=== PATIENT | male | born 1970 | race Caucasian/White ===

== ENCOUNTER 2019-12-02 09:38 | Day surgery (SDC) | payer OTHER ==
[2019-12-02] VITALS (8 sets, daily range): BP systolic 114–138; BP diastolic 65–84; PULSE 69–79; TEMP 97.1–98.5
[~2019-12-02] VITALS: Ht 180.3 cm; Wt 107.6 kg
[2019-12-02] MEDS ORDERED: BENICAR5 MG PO (10:57)
[2019-12-02] MEDS ORDERED: NAPROSYN500 MG PO (10:57)
[2019-12-02] MEDS ORDERED: LUNESTA3 MG PO (10:58)
[2019-12-02] MEDS ORDERED: DOCOSAHEXAENOIC ACID PO (10:59)
[2019-12-02] MEDS ORDERED: [UNRECOGNIZED DRUG - OTHER] PO (11:00)
[2019-12-02] MEDS ORDERED: MULTIVITAMIN PO (11:01)
[2019-12-02] MEDS ORDERED: NORCO 325 MG-51 TAB PO (14:07)
--- NOTE | 2019-12-02 14:35 | NUR ---
Patient returns to room per cart from PACU and is awake and alert. Temp 97.3 and room air sats 96%. Bandaids x3 on abdomen is clean and dry. IV fluids infusing and site is free of redness. Siderails up x2 and call light in reach. Taking sips of water and allowed to rest.
--- NOTE | 2019-12-02 14:50 | NUR ---
Resting and talking on phone. Offers no complaints.
--- NOTE | 2019-12-02 15:05 | NUR ---
Eating muffin and drinking Pepsi. States that he is beginning to have some incisional soreness.
--- NOTE | 2019-12-02 15:10 | NUR ---
Medicated with [place] 5mg for incisional pain.
--- NOTE | 2019-12-02 15:20 | NUR ---
Room air sats 95%. Sipping on Pepsi and water.
--- NOTE | 2019-12-02 15:35 | NUR ---
Eating toast and drinking water. No further complaints of pain or nausea.
--- NOTE | 2019-12-02 16:05 | NUR ---
Resting talking on phone.
--- NOTE | 2019-12-02 16:30 | NUR ---
Assisted up to the bathroom and voids. Gait steady and returns to room. IV discontinued and assisted patient with dressing.
--- NOTE | 2019-12-02 16:44 | NUR ---
Dismissal instructions given and voices understanding of home cares and follow up as scheduled. Provided script for [place] and informed that he may take Motrin 600mg po every 6 hours as needed for pain.
--- NOTE | 2019-12-02 16:49 | NUR ---
Patient dismissed to home driven by spouse and taken to the front door per wheelchair and asssisted into vehicle by this RN with instructions in hand.
== END 2019-12-02 16:49 | disposition home or self-care (01) ==
LOC: SDCO 09:38
DX: K40.20 Bilateral inguinal hernia, without obstruction or gangrene, not specified as recurrent (principal); D17.6 Benign lipomatous neoplasm of spermatic cord; I10 Essential (primary) hypertension; M16.12 Unilateral primary osteoarthritis, left hip; Z96.642 Presence of left artificial hip joint; Z79.899 Other long term (current) drug therapy; Z91.041 Radiographic dye allergy status
CPT/HCPCS: C1781; J0690; J1100; J1170; J1885; J2405; J2704; J3010; J7120